=== PATIENT | female | born 1960 | race Caucasian/White ===

== ENCOUNTER → 2021-07-18 | Day surgery (SDC) | payer OTHER ==
[~2021-07-18] VITALS: Ht 167.6 cm; Wt 106.8 kg
[~2021-07-18] MED LIST: ADVIL200 M1 PO; ATIVAN1 MG PO; ATORVASTATIN CA20 MG PO; BIOTIN5000 MC1 PO; ETODOLAC500 MG PO; FLEXERIL10 MG PO; KEFLEX500 MG PO; LEVO-T175 MCG PO; METFORMIN HCL500 MG PO; NORCO 5-325 TA1 EACH PO; NORCO 7.5-3251 EACH PO; PERCOCET 5-3251 EACH PO; PREVACID30 M1 PO; VENLAFAXINE HC225 MG PO; VENTOLIN HFA IN18 GM PO; VITAMIN D5000 UNI1 PO
== END | disposition home or self-care (01) ==
LOC: FAS 08:12
DX: K22.4 Dyskinesia of esophagus (principal); R13.10 Dysphagia, unspecified; K21.9 Gastro-esophageal reflux disease without esophagitis; R49.0 Dysphonia; E78.00 Pure hypercholesterolemia, unspecified; G47.30 Sleep apnea, unspecified; E03.9 Hypothyroidism, unspecified; F17.200 Nicotine dependence, unspecified, uncomplicated; F32.A Depression, unspecified; F41.9 Anxiety disorder, unspecified; J44.9 Chronic obstructive pulmonary disease, unspecified; E78.5 Hyperlipidemia, unspecified; E11.9 Type 2 diabetes mellitus without complications; E66.9 Obesity, unspecified; Z90.710 Acquired absence of both cervix and uterus; Z72.89 Other problems related to lifestyle; Z99.89 Dependence on other enabling machines and devices; Z68.37 Body mass index [BMI] 37.0-37.9, adult; Z88.5 Allergy status to narcotic agent; Z88.6 Allergy status to analgesic agent; Z88.8 Allergy status to other drugs, medicaments and biological substances; Z79.84 Long term (current) use of oral hypoglycemic drugs; Z79.899 Other long term (current) drug therapy
CPT/HCPCS: J2250; J2704; J7120